=== PATIENT | female | born 1955 | race Caucasian/White ===

== ENCOUNTER → 2021-06-13 | Day surgery (SDC) | payer BC ==
[~2021-06-13] VITALS: Ht 152.4 cm; Wt 65.8 kg
[2021-06-13] VITALS (15 sets, daily range): BP systolic 106–162; BP diastolic 55–96
[~2021-06-13] MED LIST: ALBU8.5H7 IH; AMLO2.5T5 PO; CLEAR LUNGS PO; LACTATED RINGERS 1,000 ML IV SCH; LACTATED RINGERS 1,000 ML ONE; LISI1TAB39 PO; METO-236 PO; NS 3000ML IRR IR ONE; NS IV ONE; SODIUM CHLORIDE IRR BOTTLE IR ONE; SUBLIMAZE ONE; ULTRAM PO ONE; XYLOCAINE 1%-EPI 1:100,000 ONE; [UNRECOGNIZED DRUG - OTHER] PO
--- NOTE | 2021-06-13 06:51 | PCM.EKG ---
[facility] Test Date: 2021-06-13 Test Time: 06:43:31 Pat Name: PEEWEE FORRESTER Department: Room: Gender: F Sales Service Technician: ED : 1955 Requested By: WALT [place] Order Number: [id number] Reading MD: Measurements Intervals [place] Rate: 52 P: 63 PA: 150 QRS: 48 QRSD: 112 T: 51 QT: 493 QTc: 459 Interpretive Statements Sinus rhythm Borderline intraventricular conduction delay Borderline ST depression, diffuse leads No previous ECG available for comparison Please click the below link to view image of tracing.
[2021-06-13 06:52] LABS: CARBON DIOXIDE 31.8 mmol/L (20.0-32)
--- NOTE | 2021-06-13 09:52 | OPH ---
DATE OF SURGERY: 06/13/2021 DICTATOR NAME: León Son MD PREOPERATIVE DIAGNOSES: 1. Lateral meniscal tear, left knee. 2. Synovitis, left knee. 3. Osteoarthritis, left knee. POSTOPERATIVE DIAGNOSES: 1. Lateral meniscal tear, left knee. 2. Synovitis, left knee. 3. Osteoarthritis, left knee. OPERATIVE PROCEDURES: Arthroscopy of the left knee with: 1. Lateral meniscectomy. 2. Major synovectomy. SURGEON: León Son MD. ANESTHESIA: LMA. TOURNIQUET TIME: 25 minutes at 300 mmHg. DRAINS: None. BLOOD LOSS: 10 mL DESCRIPTION OF INDICATIONS: The patient is a 66-year-old female with about a 5-6 month history of painful popping and catching about the left knee. She is unable to take any anti-inflammatories because of GI problems. The patient complains of pain and swelling as well as painful mechanical symptoms about the knee. She has tried bracing and home exercise program. Exam shows that she has about a 2 to 3+ effusion of the left knee. There is tenderness about the lateral joint line. She has full range of motion. Andreina and Eric tests are somewhat plus/minus. Plain x-rays shows some minor narrowing laterally. The MRI scan shows that she has some arthritic changes about the distal femur, both medially and laterally as well as a tear of the anterior horn of the lateral meniscus and a significant amount of synovitis. The patient was taken to the operating room for the above procedures for pain relief. DESCRIPTION OF PROCEDURE: The patient was placed on the operating table in the supine position. LMA anesthetic was induced without difficulty. The patient had the well-padded tourniquet placed around the left thigh. The left lower extremity was sterilely prepped and draped. The patient then had the arthroscopy portals injected with Marcaine with epinephrine. The outflow cannula was superolateral, the arthroscope was anterolateral and the probe was anteromedial. The tourniquet was inflated. Suprapatellar pouch was noted to have severe inflammatory synovitis. Likewise, the medial and lateral gutters had severe inflammatory synovitis. A shaver was introduced and a major synovectomy was performed back to capsule in the medial and lateral gutters as well as the suprapatellar pouch. The patient was noted to have grade III chondromalacia about the patella with loose fibrillations of the articular cartilage. A shaver was used to remove any loose articular cartilage. The medial compartment was entered. The medial meniscus was intact to visualization as well as probing. The patient's medial femoral condyle had an area of full thickness chondromalacia on the lateral portion of the medial femoral condyle that measured about 5 x 5 mm. Any loose articular cartilage was shaved with the shaver back to stable edges. The intercondylar notch was viewed. The anterior and posterior cruciate ligaments were normal. The knee was placed in a [id number] position. The lateral meniscus had a tear of the anterior as well as the posterior horn. The posterior horn tear was partially excised with a straight biter. The anterior horn tear was resected back to capsule using a shaver. Major synovectomy was performed about the medial and lateral compartments. The patient was noted to have some exposed subchondral bone about the lateral femoral condyle involving an area that was approximately 5-8 mm in diameter. The patient had the arthroscopic equipment removed from the knee. The portal tracts were closed with 3-0 Ethilon. The patient had a compressive dressing applied consisting of Adaptic, 4 x 4's, ABD pad, Kerlix and Neftali wrap. The patient was extubated in the operating room and sent to recovery in stable condition. León Son MD DR: DONELL/ARGELIA LAWRENCE: [id number] RECEIPT: [id number]
== END | disposition home or self-care (01) ==
LOC: SDC 06:13
PROVIDERS: ATTEND Orthopaedic Surgery
DX: M23.352 Other meniscus derangements, posterior horn of lateral meniscus, left knee (principal); M23.342 Other meniscus derangements, anterior horn of lateral meniscus, left knee; M17.12 Unilateral primary osteoarthritis, left knee; M65.862 Other synovitis and tenosynovitis, left lower leg; M25.462 Effusion, left knee; M94.262 Chondromalacia, left knee; I10 Essential (primary) hypertension; J44.9 Chronic obstructive pulmonary disease, unspecified; F17.210 Nicotine dependence, cigarettes, uncomplicated; Z79.899 Other long term (current) drug therapy
CPT/HCPCS: 29876; 29881; 36415; 80048; 93005; A4217 ×2; A4649 ×3; J3010; J7120

== ENCOUNTER → 2021-06-22 | Outpatient (CLI) | payer BC ==
[~2021-06-22] MED LIST changes: -LACTATED RINGERS 1,000 ML IV SCH; -LACTATED RINGERS 1,000 ML ONE; -NS 3000ML IRR IR ONE; -NS IV ONE; -SODIUM CHLORIDE IRR BOTTLE IR ONE; -SUBLIMAZE ONE; -ULTRAM PO ONE; -XYLOCAINE 1%-EPI 1:100,000 ONE
[2021-06-22 14:16] LABS: BASOPHIL # 0.1 10^3/uL (0.0-0.1); BASOPHIL % 0.5 % (0.0-0.2); EOSINOPHIL # 0.2 10^3/uL (0.0-0.2); EOSINOPHIL % 2.2 % (0.0-5.0); LYMPHOCYTES # 2.29 10^3/uL1 (1.0-4.8); LYMPHOCYTES % 22.4 % (24.0-44.0); MEAN CORP HGB 32.3 pg (26-34); MONOCYTES # 1.2 10^3/uL (0.3-0.8); MONOCYTES % 11.7 % (5.0-12.0); NEUTROPHIL # 6.4 10^3/uL (1.8-7.7); NEUTROPHILS % 62.9 % (41.0-85.0); PLATELET COUNT 337 10^3/uL (150-400); RED CELL DISTRIBUTION WIDTH 13.2 % (11.5-14.5)
== END | disposition home or self-care (01) ==
LOC: LAB 14:07
PROVIDERS: ATTEND Orthopaedic Surgery
DX: S80.12XA Contusion of left lower leg, initial encounter (principal); X58.XXXA Exposure to other specified factors, initial encounter; Y92.89 Other specified places as the place of occurrence of the external cause; Y93.89 Activity, other specified; Y99.8 Other external cause status
CPT/HCPCS: 36415; 85025; 85610; 85730